=== PATIENT | male | born 2000 | race Native Hawaiian/Other Pacific Islander ===

== ENCOUNTER 2019-10-09 20:14 | Outpatient (CLI) | payer BC | END 2019-10-09 20:21 | disposition short-term general hospital (02) | LOC: AMB 20:14 | DX: I46.8 Cardiac arrest due to other underlying condition (principal); W86.0XXA Exposure to domestic wiring and appliances, initial encounter; Y92.098 Other place in other non-institutional residence as the place of occurrence of the external cause | CPT/HCPCS: A0425; A0433 ==

== ENCOUNTER 2019-10-09 20:23 | Emergency (ER) | payer BC ==
[~2019-10-09] VITALS: Ht 170.2 cm; Wt 99.8 kg
== END 2019-10-09 23:38 | disposition expired ==
LOC: ED 20:24
PROC: 5A12012 Performance of Cardiac Output, Single, Manual (ICD-10-PCS; principal; 2019-10-09)
DX: I46.8 Cardiac arrest due to other underlying condition (principal); W86.0XXA Exposure to domestic wiring and appliances, initial encounter; Y92.098 Other place in other non-institutional residence as the place of occurrence of the external cause
CPT/HCPCS: 31500; 92950; 96365; 96375; 99285; J0171